=== PATIENT | female | born 1965 | race Caucasian/White ===

== ENCOUNTER → 2021-05-03 | Outpatient (CLI) | payer MEDICARE ==
[~2021-05-03] MED LIST: IOHEXOL 240 MG/ML 50ML VIAL. ONE; IOHEXOL 300 MG/ML 75 ML VIAL. IV ONE
--- NOTE | 2021-05-03 11:35 | RAD ---
EXAM: Abdomen and pelvis CT with and without intravenous contrast. HISTORY: Right lower quadrant pain, nausea and diarrhea. TECHNIQUE: Computed tomographic images of the abdomen and pelvis were obtained prior to and following the administration of intravenous contrast. Multiplanar reformatting was performed. *One or more of the following individualized dose reduction techniques were utilized for this examina tion: 1. Automated exposure control. 2. Adjustment of the mA and/or kV according to patient size. 3. Use of iterative reconstruction technique. COMPARISON: None. FINDINGS: Evaluation of the lower thorax demonstrates no infiltrate, pleural effusion or suspicious p ulmonary nodule. The heart is normal in size. There is a 1.3 cm hypodense lesion within the hepatic d ome. There is a 9 mm hypodense lesion within the inferior right hepatic lobe. These are too small to characterize. There is focal intrahepatic biliary duct dilatation. There is no extrahepatic biliary d uctal dilatation. The gallbladder, pancreas, spleen, adrenal glands and stomach are unremarkable. There is a 4 mm nonob structive right renal stone. There is a 7 mm lateral left renal cortical cyst. Follow up is not routi chaparrita performed for simple cysts. There is no appendicitis. There is no bowel obstruction. There is no abnormal bowel wall thickening. The aorta is normal in caliber. There is no lymphadenopathy. The uterus is absent. The bladder is unr emarkable. There is no acute or suspicious osseous finding. IMPRESSION: 1. No acute abdominal or pelvic finding. 2. Small ill-defined hypodense lesions within hepatic dome and inferior right hepatic lobe, best seen on coronal reformatted images. In the absence of known malignancy, these may be hemangiomas. These a re likely too small to characterize sonographically. MRI can be performed to confirm benignity if the re are risk factors for hepatic neoplasm. 3. Right nephrolithiasis and small simple appearing left renal cyst. Electronically signed by: Floresita Hutton MD (05/03/2021 11:32 AM) [id number]
== END ==
LOC: CT 10:05
PROVIDERS: ATTEND Internal Medicine
DX: N20.0 Calculus of kidney (principal); N28.1 Cyst of kidney, acquired; I81 Portal vein thrombosis; R10.10 Upper abdominal pain, unspecified
CPT/HCPCS: 74178; Q9967